=== PATIENT | male | born 2000 | race Caucasian/White ===

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

== ENCOUNTER 2021-06-08 18:30 | Emergency (ER) | payer OTHER, BC, SELFPAY ==
[2021-06-08 18:30] VITALS: BP 115/73; PULSE 84; RESP 16; TEMP 37; O2SAT 98; BMI 38.0
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
[2021-06-08 20:25] VITALS: BP 121/75; PULSE 80; RESP 16; TEMP 37; O2SAT 98
== END 2021-06-08 20:27 | disposition home or self-care (01) ==
PROVIDERS: Emergency Provider Student in an Organized Health Care Education/Training Program
DX: S01.81XA Laceration without foreign body of other part of head, initial encounter (principal); V43.52XA Car driver injured in collision with other type car in traffic accident, initial encounter; Y92.488 Other paved roadways as the place of occurrence of the external cause
CPT/HCPCS: 12002; 71046; 72170; 73090; 99282

== ENCOUNTER 2023-10-16 12:05 | Emergency (ER) | payer BC, SELFPAY ==
[2023-10-16 12:06] VITALS: BP 132/91; PULSE 90; RESP 18; TEMP 37; O2SAT 99; BMI 38.4
--- NOTE | 2023-10-16 12:30 | CT_ITS ---
FINAL REPORT CLINICAL HISTORY: history of Crohn s disease, rectal pain/swelling COMPARISON: 04/22/2018 FINDINGS: CT OF THE ABDOMEN AND PELVIS WITH CONTRAST Axial CT images of the abdomen and pelvis were obtained after the administration of IV contrast. Coronal and sagittal reformatted images were also obtained and reviewed. This study was performed with techniques to keep radiation doses as low as reasonably achievable (ALARA). Individualized dose reduction techniques using automated exposure control or adjustment of mA and/or kV according to the patient's size were employed. Abdomen: There is a 10 mm pleural-based nodule in the lateral left lower lobe, new since the prior CT of 2018. This is likely inflammatory.. The heart is normal in size. The liver has an unremarkable appearance, without evidence of mass or biliary ductal dilatation. The spleen is unremarkable. No adrenal mass is present. The pancreas has an unremarkable appearance. The kidneys are normal, without evidence of mass or hydronephrosis. The aorta is normal in caliber. There is no free fluid or adenopathy. No mass or abnormal fluid collection is seen. Pelvis: The appendix is not well-visualized, likely surgically absent.. There is wall thickening of the terminal ileum with submucosal fat consistent with chronic inflammatory change. There are several right lower quadrant nodes present, likely reactive. The urinary bladder is No inflammatory process is seen. There is no evidence of bowel obstruction. IMPRESSION: Wall thickening of the terminal ileum with submucosal fat consistent with chronic inflammatory change. There are several right lower quadrant lymph nodes present, likely reactive. 10 mm pleural-based nodule in the lateral left lower lobe, new since the prior exam of 2018 and likely inflammatory. Would consider a 12-month follow-up CT for further evaluation. Reviewed, Interpreted and Dictated by Guero Meeks III, MD Transcribed by La Britt Authenticated and [facility]
--- NOTE | 2023-10-16 12:31 | ED_ITS ---
Discharge Plan Disposition Patient Disposition: Home, Self-Care Prescriptions Prescriptions: New sulfamethoxazole-trimethoprim [Bactrim DS] 800-160 mg tablet 1 tab PO BID 7 Days Qty: 14 0RF cephalexin 500 mg capsule 1,000 mg PO BID 7 Days Qty: 28 0RF Referrals Follow up/Referrals: Alicia Valencia [Primary Care Provider] - See instructions Activity Restrictions/Add. Instructions Additional Instructions/Restrictions: Call your family doctor to establish care for this visit to the emergency department and schedule follow-up within 48 hours to ensure improvement. If you have any worsening of your condition or any other concerning signs or symptoms, return to the emergency department or your primary care doctor for further evaluation. Bactrim and Keflex twice daily for 7 days. Maintain follow-up with podiatry tomorrow as scheduled Clinical Impressions Clinical Impression: Cellulitis of right toe Discharge ED Provider: Pedro Avila General Adult HPI General Chief complaint: PAIN Stated complaint: lower back pain Time Seen by Provider: 10/16/23 12:08 Mode of Arrival: Ambulatory Source of Information: Patient Limitations: No Limitations Description of Symptoms (Recalled from ER Triage Doc. by RN): Patient reports pain in rectum. States pain started 1 week ago and is getting worse. Patient reports history of crohns and fistula and just wanted to get evaluated. Patient denies blood in stool or nausea. Patient states he feels like his rectum is swollen. 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 Patient states that rectal pain has been going on for little over a week. Worse than his previous. States that he has not had any blood or mucus in his stool. Has not been leaking stool. States that pain is made worse with bowel movements, has not been constipated. Thought it might of been hemorrhoids, started using hemorrhoid cream, but this has not helped at all. Denies fevers, chills, cristina abdominal pain, nausea or vomiting. States that the left side of his rectum feels swollen closed. Please note that above description of symptoms, in this electronic medical record under categorization of recalled from ER triage doctor by RN are reflective of an initial nursing assessment, however, is not reflective of my full history and physical exam that was personally taken and clarified. Consequentially, this preceding description of symptoms, which may include the patient's categorized chief complaint in the EMR, do not reflect my personal clinical impression, and the ultimate description of history of present illness and patient stated complaints should be deferred to this section of the note. Unless stated otherwise or congruent with this section of the note, additional signs, symptoms, or incongruence should be interpreted as inaccurate with my clinical impression. Related Data Previous Rx's Medication Instructions Recorded cephalexin 500 mg capsule 1,000 mg (2 x 500 mg) PO BID 7 10/16/23 days #28 caps sulfamethoxazole 800 1 tab PO BID 7 days #14 tabs 10/16/23 mg-trimethoprim 160 mg tablet (Bactrim DS) Allergies Allergy/AdvReac Type Severity Reaction Status Date / Time No Known Allergies Allergy Unverified 07/17/17 15:06 [facility] Disclaimer: The information contained in this section may have been updated after the patient was seen, as this information can be updated by other users. Social History Smoking Status: Never smoker alcohol intake: never current occupational status: employed and unemployed Travel in the last 8 weeks: None ROS Obtained: Yes All systems reviewed & no additional complaints except as documented Physical Exam General General appearance: alert and in no apparent distress Head Head exam: atraumatic and normocephalic Eye Eye exam: Present normal appearance, PERRL and EOMI ENT ENT exam: Present mucous membranes moist Neck Neck exam: Present normal inspection, full ROM and trachea midline Respiratory Respiratory exam: Absent respiratory distress, wheezes, stridor, accessory muscle use or prolonged expiratory phase Cardiovascular Cardiovascular exam: Present normal rhythm Abdominal Exam Abdominal exam: Present soft; Absent distention, tenderness, guarding, rebound or rigidity Rectal Exam Rectal exam: Present hemorrhoids and tenderness (Primarily on the left. Associated erythema without obvious fluctuance. Patient does have small skin defect at 6 o'clock position just outside of anal sphincter concerning for possible fistula.) Extremities Exam Extremities exam: Absent edema Neurological Exam Neurological exam: Present alert, oriented X3, CN II-XII intact and normal gait; Absent motor sensory deficit Skin Skin exam: Present warm and dry; Absent diaphoresis or erythema Medical Decision Making Medical Records Medical records reviewed: Yes I reviewed the patient's medical records. Harry Inquiry Pt receiving controlled substance: No Harry was queried for this patient: No Vital Signs: 10/16/23 12:06 Temperature 98.6 F Temperature Source Oral Pulse Rate [Right] 90 Respiratory Rate 18 Blood Pressure [Right Arm] 132/91 H Blood Pressure Mean [Right Arm] 104 Blood Pressure Source [Right Arm] Automatic Cuff 02 Sat by Pulse Oximetry 99 Oxygen Delivery Method Room Air Lab Data Lab Results 10/16/23 12:20: WBC 8.8, RBC 5.40, Hgb 16.7, Hct 46.2, MCV 85.6, MCH 30.9, MCHC 36.2 H, RDW 13.2, Plt Count 258, MPV 7.8, Neut % (Auto) 74.2, Lymph % (Auto) 17.2, [place] % (Auto) 5.1, Eos % (Auto) 2.4, Baso % (Auto) 1.1, Neut # (Auto) 6.5, Lymph # (Auto) 1.5, [place] # (Auto) 0.4, Eos # (Auto) 0.2, Baso # (Auto) 0.1, ESR 27 H, Sodium 141, Potassium 4.2, Chloride 103, Carbon Dioxide 28, Anion Gap 14.2, BUN 12, Creatinine 1.10, Estimated Creat Clear 173, Estimated GFR 82, Est GFR ( Amer) 100, Glucose 85, Lactate 1.2, Calcium 9.9, Total Bilirubin 0.7, AST 38, ALT 38, Alkaline Phosphatase 67, C-Reactive Protein 6.8 H, Total Protein 9.0 H, Albumin 5.3 H, Globulin 3.7 H, Albumin/Globulin Ratio 1.4 10/16/23 12:20 10/16/23 12:20 Orders (Tests/Meds): ED MEDICATIONS Discontinued Medications Generic Name Dose Route Start Last Admin Trade Name Freq PRN Reason Stop Dose Admin Acetaminophen 1,000 mg 10/16/23 13:24 10/16/23 13:34 Acetaminophen 1,000mg/100ml Vial IV 10/16/23 13:25 1,000 mg ONCE ONE Administration Dexamethasone Sodium Phosphate 10 mg 10/16/23 13:24 10/16/23 13:34 Dexamethasone 4mg/Ml 1ml Vial IV 10/16/23 13:25 10 mg ONCE ONE Administration Iopamidol 75 ml 10/16/23 13:09 10/16/23 13:10 Iopamidol-370 (76%);100ml Bottle IV 10/16/23 13:10 75 ml ONCE ONE Administration Ketorolac Tromethamine 15 mg 10/16/23 13:24 10/16/23 13:34 Ketorolac 30mg/Ml Vial IV 10/16/23 13:25 15 mg ONCE ONE Administration Sodium Chloride 10 ml 10/16/23 13:09 10/16/23 13:10 Sodium Chloride 0.9% 10ml Syr (Rad Only) IV 10/16/23 13:10 10 ml ONCE ONE Administration ORDERS Category Date Time Status CT abdomen pelvis w con Stat Cat Scan 10/16/23 12:30 Taken CMP [Comprehensive Metabolic Panel] Stat Lab 10/16/23 12:20 Completed CRP [C-Reactive Protein] Stat Lab 10/16/23 12:20 Completed Complete Blood Count Auto Diff Stat Lab 10/16/23 12:20 Completed ESR [Erythrocyte Sedimentation Rate] Stat Lab 10/16/23 12:20 Completed Lactic Acid Stat Lab 10/16/23 12:20 Completed Blood Culture Stat Micro 10/16/23 12:48 Received Medical Decision Narrative: This is a 23-year-old male with history of Crohn disease with 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 Patient states that rectal pain has been going on for little over a week. Worse than his previous. States that he has not had any blood or mucus in his stool. Has not been leaking stool. States that pain is made worse with bowel movements, has not been constipated. Thought it might of been hemorrhoids, started using hemorrhoid cream, but this has not helped at all. Denies fevers, chills, cristina abdominal pain, nausea or vomiting. States that the left side of his rectum feels swollen closed. Last colonoscopy was 2 years ago normal for him. History was obtained via conversation with patient and . On arrival, patient hemodynamically stable, alert, oriented x4, appropriate, GCS 15, moving all extremities spontaneously, pupils equal and reactive to light. Full physical exam performed and significant for abdomen soft, nontender, nondistended. Patient has perirectal tenderness without obvious fluctuance. It is erythematous as well. No obvious fistula or perianal fissure. Differential includes perianal fistula, internal hemorrhoid, Crohn's flare, proctitis, among others. Patient was given Bactrim and Keflex p.o. for symptomatic management and correction of underlying abnormalities. Workup independently interpreted and significant for no leukocytosis. Patient does have mildly elevated ESR at 27. CRP elevated 6.8. Overall nonactionable. Lactate was negative. X-ray of the foot without acute bony erosion. See radiology read for full review of final results. On reevaluation, patient resting comfortably. Given patient presentation, workup, history, this most likely represents cellulitis of the toes. Because of the blistering and skin discoloration, I recommended patient follow-up with Dr. Morrow either way for close follow-up, she voiced understanding, booked an appointment for tomorrow, 10/16 at 10 AM. Because patient at baseline without signs or symptoms of clinical decompensation, deemed appropriate for discharge. Results were relayed to patient who voiced understanding and were agreeable to outpatient management and follow up. I discussed my clinical impression with patient and answered all questions. At this time, the evidence for any other entities in the differential is insufficient to warrant any further testing or ED observation. This was explained as well. Advisory was given that persistent or worsening symptoms require further evaluation. I confirmed the understanding of this discussion. Critical Care Critical Care Time Critical Care Time: No
[2023-10-16 12:38] LABS: Basophils # 0.1 K/mm3 (0-0.2); Basophils % 1.1 % (0.1-2.0); Eosinophils # 0.2 K/mm3 (0.0-0.4); Eosinophils % 2.4 % (0.1-12.0); Hematocrit 46.2 % (42.0-52.0); Hemoglobin 16.7 g/dL (14.1-18.0); Lymphocytes # 1.5 K/mm3 (0.7-4.5); Lymphocytes % 17.2 % (10-50); Mean Corpuscular HGB Conc 36.2 g/dL (31.8-35.4); Mean Corpuscular Hemoglobin 30.9 pg (27.0-31.2); Mean Corpuscular Volume 85.6 fl (80-94); Mean Platelet Volume 7.8 fl (7.4-10.4); Monocytes # 0.4 K/mm3 (0.1-1.0); Monocytes % 5.1 % (1.7-9.3); Neutrophils # 6.5 K/mm3 (1.8-7.8); Neutrophils % 74.2 % (37.0-80.0); Platelet Count 258 K/mm3 (142-424); Red Cell Distribution Width 13.2 % (11.5-17.5); White Blood Count 8.8 K/mm3 (4.8-10.8)
[2023-10-16 12:48] LABS: Alanine Aminotransferase 38 U/L (12-78); Albumin Level 5.3 g/dl (3.5-5.0); Albumin/Globulin Ratio 1.4 (1.1-1.8); Alkaline Phosphatase 67 U/L (38-126); Anion Gap 14.2 mEq/L (5-15); Aspartate Amino Transferase 38 U/L (17-59); Bilirubin,Total 0.7 mg/dl (0.2-1.3); Blood Urea Nitrogen 12 mg/dl (9-20); Calcium 9.9 mg/dl (8.4-10.2); Carbon Dioxide 28 mmol/L (22.0-30.0); Chloride 103 mmol/L (98-107); Creatinine Clearance Estimated 173 mL/min (50-200); Estimated Glomerular Filt Rate 82 ml/min (>60); GFR (African American) 100 ML/MIN (>60); Globulin 3.7 g/dL (1.3-3.2); Glucose 85 mg/dl (74-100); Potassium 4.2 mmoL/L (3.5-5.1); Sodium 141 mmol/L (136-145)
[2023-10-16 12:49] LABS: Lactic Acid 1.2 mmol/L (0.7-2.1)
[2023-10-16 12:54] LABS: C-Reactive Protein 6.8 mg/L (0-4)
[2023-10-16] MEDS: IOPAMIDOL-370 (76%);100ML BOTTLE 75 ML IV (13:10)
[2023-10-16] MEDS: SODIUM CHLORIDE 0.9% 10ML SYR (RAD ONLY) 10 ML IV (13:10)
[2023-10-16 13:25] LABS: Erythrocyte Sedimentation Rate 27 mm/hr (0-15)
--- NOTE | 2023-10-16 13:25 | PC.NURSE ---
Rounded on pt. Pt advised he was in pain. Dr. Avila notified.
[2023-10-16] MEDS: ACETAMINOPHEN 1,000MG/100ML VIAL 1000 MG IV (13:34)
[2023-10-16] MEDS: DEXAMETHASONE 4MG/ML 1ML VIAL 10 MG IV (13:34)
[2023-10-16] MEDS: KETOROLAC 30MG/ML VIAL 15 MG IV (13:34)
[2023-10-16 13:40] VITALS: BP 130/76; PULSE 68; O2SAT 99
[2023-10-16] MEDS: LIDOCAINE 5% OINTMENT 35GM TUBE 35 GM TP (14:45)
[2023-10-16 15:03] VITALS: BP 121/88; PULSE 78; RESP 16; TEMP 36.7; O2SAT 98
== END 2023-10-16 15:05 | disposition home or self-care (01) ==
PROVIDERS: Emergency Provider Emergency Medicine; PCP Nurse Practitioner Family
DX: K50.918 Crohn's disease, unspecified, with other complication (principal); K50.913 Crohn's disease, unspecified, with fistula; K62.89 Other specified diseases of anus and rectum
CPT/HCPCS: 36415; 74177; 80053; 83605; 85025; 85651; 86140; 87040; 96374; 96375; 99285; J0131; Q9967

== ENCOUNTER 2024-02-18 12:22 | Outpatient (CLI) | payer BC, SELFPAY ==
--- NOTE | 2024-02-18 12:32 | CT_ITS ---
FINAL REPORT TECHNIQUE: After the administration of intravenous contrast, axial images through the chest were performed by computed tomography.This study was performed with techniques to keep radiation doses as low as reasonably achievable, (ALARA). Individualized dose reduction techniques using automated exposure control or adjustment of mA and/or kV according to the patient''s size were employed. CLINICAL HISTORY: SOLITARY NODULE OF LUNG COMPARISON: CT abdomen and pelvis dated 10/16/2023 FINDINGS: There is no axillary adenopathy. There is no hilar or mediastinal adenopathy. The heart size is normal. There is no pericardial or pleural effusion. Limited images of the upper abdomen are unremarkable. There is a subpleural nodule in the left lower lobe measuring 11 mm. This is unchanged compared to the prior exam. Remaining lungs are clear. IMPRESSION: Stable left lower lobe subpleural nodule. Recommend longer-term CT follow-up in 6 months. Reviewed, Interpreted and Dictated by Lolis Mcdonald MD Transcribed by Rochelle Davis Authenticated and [facility]
[2024-02-18] MEDS: SODIUM CHLORIDE 0.9% 10ML SYR (RAD ONLY) 10 ML IV (13:27)
[2024-02-18] MEDS: IOPAMIDOL-370 (76%);100ML BOTTLE 75 ML IV (13:28)
== END 2024-02-18 23:59 | disposition home or self-care (01) ==
LOC: RAD 12:26
PROVIDERS: PCP Nurse Practitioner Family; Visit Provider Nurse Practitioner Family
DX: R91.1 Solitary pulmonary nodule (principal)
CPT/HCPCS: 71260; Q9967